=== PATIENT | male | born 1960 | race Caucasian/White ===

== ENCOUNTER 2024-06-25 14:11 | Emergency (ER) | payer BC, OTHER, SELFPAY ==
[2024-06-25] VITALS (7 sets, daily range): BP systolic 136–168; BP diastolic 77–95; BMI 34.4
[2024-06-25 14:32] LABS: % Basophils 0.3 % (0-2); % Eosinophils 0.3 % (0-6); % Immature Granulocytes 0.4 % (0-0.5); % Monocytes 6.5 % (1.7-9.3); % Neutrophils 82.5 % (42.2-75.2); Absolute Immature Granulocytes 0.1 10^3/uL (0-0.05); Absolute Lymphocytes 1.3 10^3/uL (1.2-3.4); Absolute Monocytes 0.8 10^3/uL (0.1-0.6); Absolute Neutrophils 10.4 10^3/uL (1.4-6.5); Hematocrit 46.1 % (39.0-52.0); Hemoglobin 15.9 g/dL (13.0-18.0); Mean Corp Hgb Conc. 34.5 g/dL (33.0-37.0); Mean Corpuscular Hgb 30.5 pg (27.0-31.0); Mean Corpuscular Volume 88.3 fL (80.0-94.0); Nucleated Red Blood Cells % 0 % (-); Platelet Count 191 10^3/uL (130-400); Red Blood Cell Count 5.22 10^6/uL (4.70-6.10); Red Cell Dist. Width 12.1 % (11.5-14.5); White Blood Cell Count 12.7 10^3/uL (4.8-10.8)
[2024-06-25 14:50] LABS: ALT (SGPT) 35 U/L (0-50); AST (SGOT) 37 U/L (17-59); Albumin 4.8 g/dl (3.5-5.0); Alkaline Phosphatase 72 U/L (38-126); Blood Urea Nitrogen 23 mg/dl (9-20); Calcium 9.3 mg/dl (8.4-10.2); Carbon Dioxide 26 mmol/L (22-30); Chloride 102 mmol/L (98-107); Glucose 120 mg/dl (70-99); Lipase 68 U/L (23-300); Potassium 4.2 mmol/L (3.5-5.1); Sodium 140 mmol/L (135-145); Total Bilirubin 1.3 mg/dl (0.2-1.3); Total Protein 7.4 g/dl (6.3-8.2); eGFR > 60.00
--- NOTE | 2024-06-25 15:03 | ED.GENMED ---
History of Present Illness
<Jennifer Reynolds PA-C - Last Filed: 06/25/24 20:52>
General
Chief Complaint: Abdominal Pain
Source: patient
Exam Limitations: none
Time Seen by Provider: 06/25/24 14:47
History of Present Illness
History of Present Illness:
63yoM with a history of hypertension and hyperlipidemia presenting for evaluation of abdominal pain. Patient was feeling generally unwell throughout the day yesterday. He had the urge to have a bowel movement but was unable to have a full BM. He
started to have lower abdominal pain after eating dinner last night. He had an episode of vomiting and the pain seemed to subside. His pain recurred a few hours ago after eating a banana. Pain is coming in waves and is described as a cramping
sensation. Pain is worse in the suprapubic region and is nonradiating. No prior history of similar pains. He was able to have a small bowel movement earlier today. He is otherwise asymptomatic and denies any fevers, dysuria, flank pain,
testicular pain, chest pain, shortness of breath. No previous abdominal surgeries. Last colonoscopy was about 2 years ago which showed a small polyp but was otherwise normal.
Phy Exam
<Jennifer Reynolds PA-C - Last Filed: 06/25/24 20:52>
General Physical Exam
General Presentation: well appearing
General Skin: warm and dry
General Habitus: normal
General Mental: alert
ENT Exam
ENT Exam: normocephalic
Cardiovascular Exam
Cardiovascular Exam: regular rate/rhythm and no murmur
Pulmonary Exam
Pulmonary Exam: lungs clear, no respiratory distress, no rales, no crackles and no rhonchi
Gastrointestinal Exam
Gastrointestinal Exam: soft, non distended and other (+Tenderness in the suprapubic region. Abdomen soft, non-distended. No rebound, guarding, or rigidity. )
Neurological Exam
Neurological Exam: alert
[place] Coma Scale
Eye Opening: Spontaneous
Verbal Response: Oriented
Motor Response: Obeys Commands
GCS Total Score: 15
Skin Exam
Skin Exam: normal color and warm/dry
Psychiatric Exam
Psychiatric Exam: normal mood/affect
<Jun Newman DO - Last Filed: 06/25/24 16:36>
[place] Coma Scale
GCS Total Score: 15
Course
<Jennifer Reynolds PA-C - Last Filed: 06/25/24 20:52>
Orders/Labs/Results
Orders:
Orders
06/25/24 14:20
Complete Blood Count/With Diff Urgent
Comprehensive Metabolic Panel Urgent
Lipase Urgent
06/25/24 14:35
Electrocardiogram (*1) Urgent
Reason for Study: Abdominal Pain
EKG- Treatment ONCE
06/25/24 15:01
0.9% Sodium Chloride 1000 ml [Nss] 1,000 ml IV BOLUS
HYDROmorphone [Dilaudid] 0.5 mg IV NOW STA
Ketorolac [Toradol] 15 mg IV NOW STA
06/25/24 16:26
CT Abd/pel W Iv And Oral Contr Urgent
Comment:
Reason For Exam: Lower abd pain
Iohexol [Omnipaque] See Protocol PO NOW STA
06/25/24 18:05
Urinalysis Reflex To Culture Urgent
Date Specimen was Collected: 06/25/24
Time Specimen was Collected: 18:02
06/25/24 20:27
Tamsulosin [Flomax] 0.4 mg PO NOW STA
06/25/24 20:33
Ketorolac [Toradol] 15 mg IV NOW STA
Abnormal Lab Results
06/25/24 06/25/24
14:20 18:05
WBC 12.7 H 10^3/uL
(4.8-10.8)
MPV 11.0 H fL
(7.4-10.4)
Abs Immat Gran (auto) 0.1 H 10^3/uL
(0-0.05)
Absolute Neuts (auto) 10.4 H 10^3/uL
(1.4-6.5)
Absolute Monos (auto) 0.8 H 10^3/uL
(0.1-0.6)
Neutrophils % 82.5 H %
(42.2-75.2)
Lymphocytes % 10.0 L %
(20.5-51.1)
BUN 23 H mg/dl
(9-20)
Glucose 120 H mg/dl
(70-99)
Urine Ketones 3+ A
(Negative)
06/25/24 14:20
06/25/24 14:20
Vital Signs
Initial and Last Documented VS:
Initial Vital Signs
Temp Pulse Resp BP Pulse Ox
98.3 F 70 16 163/95 98
06/25/24 14:14 06/25/24 14:14 06/25/24 14:14 06/25/24 14:14 06/25/24 14:14
Last Documented Vital Signs
Temp Pulse Resp BP Pulse Ox
98.7 F 75 16 136/79 98
06/25/24 15:15 06/25/24 20:00 06/25/24 20:00 06/25/24 20:00 06/25/24 19:57
<Jun Newman, DO - Last Filed: 06/25/24 16:36>
Orders/Labs/Results
Orders:
Orders
06/25/24 14:20
Complete Blood Count/With Diff Urgent
Comprehensive Metabolic Panel Urgent
Lipase Urgent
06/25/24 14:35
Electrocardiogram (*1) Urgent
Reason for Study: Abdominal Pain
EKG- Treatment ONCE
06/25/24 15:01
0.9% Sodium Chloride 1000 ml [Nss] 1,000 ml IV BOLUS
HYDROmorphone [Dilaudid] 0.5 mg IV NOW STA
Ketorolac [Toradol] 15 mg IV NOW STA
06/25/24 16:26
CT Abd/pel W Iv And Oral Contr Urgent
Comment:
Reason For Exam: Lower abd pain
Iohexol [Omnipaque] See Protocol PO NOW STA
06/25/24 18:05
Urinalysis Reflex To Culture Urgent
Date Specimen was Collected: 06/25/24
Time Specimen was Collected: 18:02
06/25/24 20:27
Tamsulosin [Flomax] 0.4 mg PO NOW STA
06/25/24 20:33
Ketorolac [Toradol] 15 mg IV NOW STA
Abnormal Lab Results
06/25/24 06/25/24
14:20 18:05
WBC 12.7 H 10^3/uL
(4.8-10.8)
MPV 11.0 H fL
(7.4-10.4)
Abs Immat Gran (auto) 0.1 H 10^3/uL
(0-0.05)
Absolute Neuts (auto) 10.4 H 10^3/uL
(1.4-6.5)
Absolute Monos (auto) 0.8 H 10^3/uL
(0.1-0.6)
Neutrophils % 82.5 H %
(42.2-75.2)
Lymphocytes % 10.0 L %
(20.5-51.1)
BUN 23 H mg/dl
(9-20)
Glucose 120 H mg/dl
(70-99)
Urine Ketones 3+ A
(Negative)
06/25/24 14:20
06/25/24 14:20
Vital Signs
Initial and Last Documented VS:
Initial Vital Signs
Temp Pulse Resp BP Pulse Ox
98.3 F 70 16 163/95 98
06/25/24 14:14 06/25/24 14:14 06/25/24 14:14 06/25/24 14:14 06/25/24 14:14
Last Documented Vital Signs
Temp Pulse Resp BP Pulse Ox
98.7 F 75 16 136/79 98
06/25/24 15:15 06/25/24 20:00 06/25/24 20:00 06/25/24 20:00 06/25/24 19:57
<Jennifer Reynolds PA-C - Last Filed: 06/25/24 20:52>
MDM/Problems Addressed
Differential Diagnosis Includes:
63yoM here with lower abd pain that started last night. Coming in waves. Associated with n/v. Also feels constipated. He is hypertensive with otherwise normal vitals. He is non-toxic appearing. No signs of peritonitis on abdominal exam. Differential
diagnosis includes but is not limited to: diverticulitis, appendicitis, kidney stone, SBO
Initial ED plan: Abdominal labs obtained in triage. White count 12.7. Labs otherwise unremarkable including normal renal function and LFTs. Will check UA and CT abdomen. IV Dilaudid, Toradol, and fluid bolus for symptoms.
<Jennifer Reynolds PA-C - Last Filed: 06/25/24 20:52>
*EKG
Interpreted by ED Provider?: Yes
EKG Intrepretation Date: 06/25/24
Heart Rate: 59
Rate: bradycardiac
Rhythm: sinus
[place]: normal axis
Interval: normal interval
QRS Pattern: normal QRS
Ischemia: no ischemia
*Critical Care Note
Total Time (30-74mins, 75-104mins- exclusive of procedures): Not Applicable
<Jennifer Reynolds PA-C - Last Filed: 06/25/24 20:52>
Update Note
Update Note:
CT shows a 9 mm stone at the R UVJ with moderate hydronephrosis. No signs of infection on urinalysis. Pain controlled on reassessment. No indication for hospitalization at this time. Supportive care discussed including hydration and urine
straining. Prescriptions provided for Flomax, Zofran, and oxycodone. Patient is from [place] and is scheduled to return home tomorrow. He was provided with a disc with CT images as well as the radiology report. Advised close urology f/u and ED
return precautions discussed including uncontrolled pain and fevers. Patient expressed understanding and is agreeable to plan. He was discharged in stable condition.
ED Attending Note
<Jennifer Reynolds PA-C - Last Filed: 06/25/24 20:52>
-
Portions of this chart may have been created with voice recognition software.� Occasional wrong word or��sound alike� substitutions may have occurred due to the inherent limitations of voice recognition software.
<Jun Newman DO - Last Filed: 06/25/24 16:36>
ED Attending Note
Patient seen and examined by attending physician: Yes
I performed the substantive portion of visit, reviewed & personally made and approve the management plan that is documented in note by myself or NANCY.: Yes
ED Attending Note:
63-year-old male presents to the emergency room complaining of abdominal pain. Pain is located in the lower abdomen. It has been waxing and waning in intensity. Associated with some nausea vomiting and burping. Patient feels like he has not been
passing gas. He has a virgin abdomen.
General: Awake, Alert, Oriented X3. No acute distress.
Vitals: unremarkable
Head: Atraumatic
Abd: Soft, central and left lower quadrant tenderness, No pulsatile mass
Neuro: Nonfocal
Skin: Warm, dry, no rash
Extremities: pulses equal b/l, no edema
Suspect diverticulitis though some historical elements may suggest partial bowel obstruction. Will obtain a CT with IV and p.o. contrast.
Discharge Plan
Departure
Patient Disposition: Home (Routine Discharge)
Date of Disposition: 06/25/24
Time of Disposition: 20:33
Patient with high blood pressure during this ER visit?: Yes
Discharge Problem:
Calculus of distal right ureter
Instructions: Kidney stones in adults, How to Strain Your Urine
Prescriptions:
New
ondansetron 4 mg tablet,disintegrating
4 mg PO Q6H PRN (Reason: nausea and vomiting) Qty: 20 0RF
tamsulosin [Flomax] 0.4 mg capsule
0.4 mg PO HS Qty: 10 0RF
oxycodone 5 mg tablet
5 mg PO Q6H PRN (Reason: Pain) Qty: 12 0RF
Referrals:
Eyad Maxwell Jr., MD [Active] -
UNKNOWN - PT DOES,NOT KNOW [Family Provider] -
Activity Restrictions/Additional Instructions:
Drink plenty of fluids. Strain your urine and take Flomax until stone has passed.
Take Tylenol 650mg and ibuprofen 600mg every 6 hours as needed for pain. Take oxycodone for severe breakthrough pain. Take Zofran as needed for nausea.
Please call on Friday to schedule a follow-up with urology. Return to the ER with any worsening symptoms, uncontrolled pain, fevers, inability to urinate.
Interventions
Interventions:
*Risk Screen - Suicide Last Done: 06/25/24 14:14
*General Assessment Last Done: 06/25/24 15:12
*Neglect/Abuse Screening Last Done: 06/25/24 14:14
*ED COVID-19 Vaccine History Last Done: 06/25/24 15:12
BO-[id number] Assessment Last Done: 06/25/24 15:30
Discharge Date and Time
Print Language: NEPALI
[2024-06-25] MEDS: NSS 1000 IV (15:21)
[2024-06-25] MEDS: TORADOL 15 MG IV ×2 (15:24→20:59)
[2024-06-25] MEDS: DILAUDID 0.5 MG IV (15:26)
[2024-06-25] MEDS: OMNIPAQUE 50 ML PO (16:36)
[2024-06-25 18:12] LABS: Urine Albumin Negative (Neg - Trace); Urine Bilirubin Negative (Negative); Urine Character Clear (Clear); Urine Color Yellow; Urine Glucose Negative (Negative); Urine Ketone 3+ (Negative); Urine Leukocyte Negative (Negative); Urine Nitrite Negative (Negative); Urine Occult Blood Negative (Negative); Urine Urobilinogen Negative (Neg - 1+)
[2024-06-25] MEDS: FLOMAX 0.4 MG PO (20:58)
[2024-06-25] MEDS: PERCOCET 5/325 1 TABLET PO (20:58)
== END 2024-06-25 21:16 | disposition home or self-care (01) ==
LOC: EMR 14:11
PROVIDERS: Physician Assistant; Student in an Organized Health Care Education/Training Program; EMERGENCY PHYSICIAN Emergency Medicine
DX: N13.2 Hydronephrosis with renal and ureteral calculous obstruction (principal); I10 Essential (primary) hypertension; E78.5 Hyperlipidemia, unspecified
CPT/HCPCS: 99284; 96374; 96375; 96376; 96361; 74177; 80053; 81003; 83690; 85025; 93005; Q9967